=== PATIENT | male | born 1945 | race Caucasian/White ===

== ENCOUNTER 2017-08-20 05:48 | Day surgery (SDC) | payer MEDICARE, BC ==
[2017-08-20] MEDS ORDERED: CEFAZOLIN 2 GM/50 ML (PMX) 50 ML (FOR WT < 120 KG) IVPB (06:00)
[2017-08-20] MEDS ORDERED: LACTATED RINGER'S 1,000 ML IV (06:00)
[2017-08-20] MEDS ORDERED: SOD CHLORIDE 0.9% 1,000 ML IV (06:00)
[2017-08-20] MEDS ORDERED: NEOSTIGMINE 3 MG/3 ML SYRINGE (07:00)
[2017-08-20] MEDS ORDERED: GLYCOPYRROLATE 0.4 MG INJ (07:00)
[2017-08-20] MEDS ORDERED: BUPIVACAINE 0.25% (MPF) 30 ML INJ (07:07)
[2017-08-20] MEDS ORDERED: PROPOFOL 0 ML (07:45)
[2017-08-20] MEDS ORDERED: CEFAZOLIN 1 GM INJ (07:45)
[2017-08-20] MEDS ORDERED: ONDANSETRON 4 MG INJ (07:45)
[2017-08-20] MEDS ORDERED: FENTAnyl 50 MCG/ML VIAL (07:45)
[2017-08-20] MEDS ORDERED: MIDAZOLAM 1 MG/ML 2 ML INJ (07:45)
[2017-08-20] MEDS ORDERED: METOCLOPRAMIDE 10 MG INJ (07:45)
[2017-08-20] MEDS ORDERED: ROCURONIUM 50 MG INJ ×2 (07:45→09:35)
[2017-08-20] MEDS ORDERED: DEXAMETHASONE 4 MG/ML 1 ML INJ (08:21)
[2017-08-20] MEDS ORDERED: ETOMIDATE 20 MG INJ (08:23)
[2017-08-20] MEDS ORDERED: EPHEDrine SULFATE 50 MG/5 ML SYG (08:26)
[2017-08-20] MEDS: BUPIVACAINE 0.5%/EPI (SDV) 30 ML INJ INJ (08:45)
[2017-08-20] MEDS: GELATIN SIZE 100 SPONGE (08:45)
[2017-08-20] MEDS: THROMBIN 5000 UNIT VIAL (08:45)
[2017-08-20] MEDS: POLYMYXIN/BACITRACIN 1L IRRIG (08:45)
[2017-08-20] MEDS ORDERED: HYDROmorphONE 2 MG/ML SYG (09:08)
[2017-08-20] MEDS ORDERED: ONDANSETRON 4 MG INJ IV (09:30)
[2017-08-20] MEDS ORDERED: MEPERIDINE 25 MG INJ IV (09:30)
[2017-08-20] MEDS ORDERED: hydrALAzine 20 MG INJ IV (09:30)
[2017-08-20] MEDS ORDERED: HYDROmorphONE (0.2 MG/ML) 10ML SYG IV ×3 (09:30)
[2017-08-20] MEDS ORDERED: OXYCODONE/ACETAMINOPHEN (5/325) TAB PO (09:30)
[2017-08-20] MEDS ORDERED: DIPHENHYDRAMINE 50 MG INJ IV (09:30)
[2017-08-20] MEDS ORDERED: LABETALOL HCL 20MG INJ IV (09:30)
[2017-08-20] MEDS: BETAMET NA PHOS/AC(6 MG/ML) 5ML INJ (11:03)
[2017-08-20] MEDS: OXYCODONE/ACETAMINOPHEN (5/325) TAB PO ×2 (13:42→14:59)
== END 2017-08-20 15:00 | disposition home or self-care (01) ==
LOC: SDS 05:48
DX: M54.16 Radiculopathy, lumbar region (principal); M48.061 Spinal stenosis, lumbar region without neurogenic claudication; I10 Essential (primary) hypertension; E78.5 Hyperlipidemia, unspecified; E03.9 Hypothyroidism, unspecified
CPT/HCPCS: 63030; 72110; 97161

== ENCOUNTER → 2017-09-18 | Outpatient (CLI) | payer MEDICARE, BC ==
[~2017-09-18] MED LIST: IODIXANOL LOCM 100 ML BTL; NITROGLYCERIN AEROSOL (4.9 GM); SOD CHLORIDE 0.9% 100 ML
== END | disposition home or self-care (01) ==
LOC: C/S 08:00
DX: R07.9 Chest pain, unspecified (principal)
CPT/HCPCS: 75571; 75574

== ENCOUNTER 2018-02-06 08:03 | Inpatient (IN) | payer MEDICARE, BC ==
[~2018-02-06 08:03] MED LIST changes: +CEFAZOLIN 1 GM INJ; +DESFLURANE 15 MIN; -IODIXANOL LOCM 100 ML BTL; +LACTATED RINGER'S 1,000 ML IV*; -NITROGLYCERIN AEROSOL (4.9 GM); -SOD CHLORIDE 0.9% 100 ML
[2018-02-06] MEDS ORDERED: MIDAZOLAM 1 MG/ML 2 ML INJ (08:44)
[2018-02-06] MEDS ORDERED: FENTAnyl 50 MCG/ML VIAL (08:44)
[2018-02-06] MEDS ORDERED: ACETAMINOPHEN 1000MG/100ML IV 100 ML (08:48)
[2018-02-06] MEDS ORDERED: LIDOCAINE 2% (SDV) 5 ML INJ (08:48)
[2018-02-06] MEDS ORDERED: SUCCINYLCHOLINE CHLORIDE 100 MG/5 ML SYG IV (08:48)
[2018-02-06] MEDS ORDERED: PROPOFOL 20 ML (08:48)
[2018-02-06] MEDS ORDERED: ONDANSETRON 4 MG INJ (08:48)
[2018-02-06] MEDS ORDERED: ROCURONIUM 50 MG INJ (08:48)
[2018-02-06] MEDS ORDERED: KETAMINE (100 MG/ML) 5 ML VIAL (10:00)
[2018-02-06] MEDS ORDERED: MEPERIDINE 25 MG INJ IV (10:30)
[2018-02-06] MEDS: CEFAZOLIN 2 GM/50 ML (PMX) 50 ML IVPB (10:30)
[2018-02-06] MEDS ORDERED: HYDROmorphONE 1 MG/5 ML IV SYRINGE IV ×2 (10:30)
[2018-02-06] MEDS ORDERED: IPRATROPIUM (NEB) 0.5 MG/2.5 ML AMP HHN (10:30)
[2018-02-06] MEDS ORDERED: LEVALBUTEROL (NEB) 1.25 MG/0.5 ML AMP HHN (10:30)
[2018-02-06] MEDS ORDERED: ONDANSETRON 4 MG INJ IV ×2 (10:30→14:00)
[2018-02-06] MEDS ORDERED: hydrALAzine 20 MG INJ IV (10:30)
[2018-02-06] MEDS ORDERED: DIPHENHYDRAMINE 50 MG INJ IV (10:30)
[2018-02-06] MEDS ORDERED: LABETALOL HCL 20MG INJ IV (10:30)
[2018-02-06] MEDS ORDERED: FENTAnyl 50 MCG/ML VIAL IV (10:30)
[2018-02-06] MEDS ORDERED: LABETALOL HCL 20MG INJ (10:56)
[2018-02-06] MEDS: BUPIVACAINE 0.25% (MPF) 30 ML INJ (11:03)
[2018-02-06] MEDS: POLYMYXIN/BACITRACIN 1L IRRIG (11:03)
[2018-02-06] MEDS ORDERED: THROMBIN 5000 UNIT VIAL (12:36)
[2018-02-06] MEDS ORDERED: GELATIN SIZE 100 SPONGE (12:36)
[2018-02-06] MEDS ORDERED: SUGAMMADEX SODIUM 200 MG/2 ML VIAL IV (12:40)
[2018-02-06] MEDS ORDERED: ZOLPIDEM 5 MG TAB PO (14:00)
[2018-02-06] MEDS ORDERED: AL HYDROX/MG HYDROX/SIMETH 30 ML CUP PO (14:00)
[2018-02-06] MEDS ORDERED: DIAZEPAM 5 MG/ML SYG IM (14:00)
[2018-02-06] MEDS ORDERED: PROCHLORPERAZINE 10 MG TAB PO (14:00)
[2018-02-06] MEDS ORDERED: DIPHENHYDRAMINE 50 MG CAP PO (14:00)
[2018-02-06] MEDS ORDERED: CEPASTAT LOZENGE MT (14:00)
[2018-02-06] MEDS ORDERED: ACETAMINOPHEN 325 MG TAB PO (14:00)
[2018-02-06] MEDS ORDERED: TRIMETHOBENZAMIDE 100 MG/ML VIAL IM (14:00)
[2018-02-06] MEDS ORDERED: HYDROCODONE/APAP (5/325) TAB PO (14:00)
[2018-02-06] MEDS ORDERED: NACL 0.9% 3 ML SYG IV (14:00)
[2018-02-06] MEDS ORDERED: BETHANECHOL 25 MG TAB PO (14:00)
[2018-02-06] MEDS ORDERED: NALOXONE (0.4 MG/ML) INJ IV (14:00)
[2018-02-06] MEDS: HYDROmorphONE 1 MG/5 ML IV SYRINGE IV ×2 (14:10→14:29)
[2018-02-06] MEDS: FENTAnyl 50 MCG/ML VIAL IV ×2 (14:10→14:29)
[2018-02-06] MEDS: HYDROmorphONE 0.2 MG/ML PCA IV (14:22)
[2018-02-06] MEDS: DEXTROSE 5%-0.45% NACL 1,000 ML IV ×2 (16:29→23:37)
[2018-02-06] MEDS: ONDANSETRON 4 MG INJ IV ×2 (17:12→22:39)
[2018-02-06] MEDS: CEFAZOLIN 1 GM/50 ML (PMX) 50 ML IVPB ×2 (17:23→23:18)
[2018-02-06] MEDS: RANITIDINE 150 MG TAB PO (20:15)
[2018-02-06] MEDS ORDERED: ATORVASTATIN 40 MG TAB PO (21:00)
[2018-02-07] MEDS: PANTOPRAZOLE (EC) 40 MG TAB PO (01:13)
[2018-02-07] MEDS: LORAZEPAM 1 MG TAB PO (02:28)
[2018-02-07] MEDS: ONDANSETRON 4 MG INJ IV ×2 (02:28→06:26)
[2018-02-07] MEDS: DEXTROSE 5%-0.45% NACL 1,000 ML IV ×3 (04:06→19:37)
[2018-02-07] MEDS: CEFAZOLIN 1 GM/50 ML (PMX) 50 ML IVPB ×2 (06:23→12:09)
[2018-02-07] MEDS: LEVOTHYROXINE 150 MCG TAB PO (06:23)
[2018-02-07] MEDS: RANITIDINE 150 MG TAB PO ×2 (08:19→21:00)
[2018-02-07] MEDS: ASCORBIC ACID 500 MG TAB PO ×2 (08:19→20:46)
[2018-02-07] MEDS: DOCUSATE SODIUM 100 MG CAP PO ×2 (08:19→21:00)
[2018-02-07] MEDS: VITAMIN B COMPLEX/VIT C CAP PO (08:19)
[2018-02-07] MEDS: HYDROCODONE/APAP (5/325) TAB PO ×4 (08:22→20:46)
[2018-02-07] MEDS: FERROUS SULFATE (EC) 325 MG TAB PO ×3 (08:22→20:46)
[2018-02-07] MEDS: BETHANECHOL 25 MG TAB PO (08:23)
[2018-02-07] MEDS: BENAZEPRIL 40 MG TAB PO (08:23)
[2018-02-07 08:37] LABS: HEMATOCRIT 33.7 % (42.0-52.0); HEMOGLOBIN 11.1 g/dl (14.0-18.0)
[2018-02-07 08:53] LABS: ANION GAP 3 (5-13); BLOOD UREA NITROGEN 13 mg/dl (7-20); CALCIUM 8.5 mg/dl (8.4-10.2); CARBON DIOXIDE 31 mmol/L (21-31); CHLORIDE 102 mmol/L (97-110); GLUCOSE 110 mg/dl (70-220); POTASSIUM 3.5 mmol/L (3.5-5.1); SODIUM 136 mmol/L (135-144)
[2018-02-07] MEDS ORDERED: NON-FORMULARY/PATIENT OWN MED (Losartan-Hydrochlorothiazide (Losartan-HCTZ) 1 TAB) PO (09:00)
[2018-02-07 14:25] LABS: ADD UMIC YES; UR ASCORBIC ACID NEGATIVE (NEGATIVE); UR BILIRUBIN (Dip) NEGATIVE (NEGATIVE); UR BLOOD (Dip) NEGATIVE (NEGATIVE); UR CLARITY CLEAR (CLEAR); UR COLOR YELLOW (YELLOW); UR GLUCOSE (Dip) NEGATIVE (NEGATIVE); UR KETONES (Dip) NEGATIVE (NEGATIVE); UR LEUKOCYTE ESTERASE (Dip) NEGATIVE Leu/ul (NEGATIVE); UR NITRITE (Dip) NEGATIVE (NEGATIVE); UR RBC 3 /HPF (0-5); UR SPECIFIC GRAVITY (Dip) 1.021 (1.003-1.030); UR TOTAL PROTEIN (Dip) 1+ mg/dl (NEGATIVE); UR UROBILINOGEN (Dip) NEGATIVE (NEGATIVE); UR WBC 2 /HPF (0-5)
[2018-02-07] MEDS: DIAZEPAM 5 MG TAB PO (14:59)
[2018-02-08] MEDS: HYDROCODONE/APAP (5/325) TAB PO ×2 (02:09→09:17)
[2018-02-08] MEDS: DIAZEPAM 5 MG TAB PO ×2 (02:20→11:45)
[2018-02-08] MEDS: LEVOTHYROXINE 150 MCG TAB PO (05:15)
[2018-02-08] MEDS: LORAZEPAM 1 MG TAB PO (05:15)
[2018-02-08] MEDS: PANTOPRAZOLE (EC) 40 MG TAB PO (05:15)
[2018-02-08] MEDS: BENAZEPRIL 40 MG TAB PO (05:22)
[2018-02-08] MEDS: DEXTROSE 5%-0.45% NACL 1,000 ML IV (05:37)
[2018-02-08] MEDS: RANITIDINE 150 MG TAB PO (09:00)
[2018-02-08] MEDS: FERROUS SULFATE (EC) 325 MG TAB PO (09:17)
[2018-02-08] MEDS: ASCORBIC ACID 500 MG TAB PO (09:17)
[2018-02-08] MEDS: DOCUSATE SODIUM 100 MG CAP PO (09:18)
[2018-02-08] MEDS: LOSARTAN 50 MG TAB PO (09:18)
[2018-02-08] MEDS: HYDROCHLOROTHIAZIDE 12.5 MG CAP PO (09:18)
[2018-02-08] MEDS: VITAMIN B COMPLEX/VIT C CAP PO (09:18)
== END 2018-02-08 12:00 | disposition home or self-care (01) | DRG 520 ==
LOC: REC 08:03 → MS1 14:59
PROC: 01NB0ZZ Release Lumbar Nerve, Open Approach (ICD-10-PCS; principal; 2018-02-06 10:00)
PROC: 0SB20ZZ Excision of Lumbar Vertebral Disc, Open Approach (ICD-10-PCS; 2018-02-06 10:00)
DX: M51.16 Intervertebral disc disorders with radiculopathy, lumbar region (principal); M48.061 Spinal stenosis, lumbar region without neurogenic claudication; I10 Essential (primary) hypertension; E78.5 Hyperlipidemia, unspecified; E03.9 Hypothyroidism, unspecified; Z95.5 Presence of coronary angioplasty implant and graft; K21.9 Gastro-esophageal reflux disease without esophagitis; L90.5 Scar conditions and fibrosis of skin
CPT/HCPCS: 72020; 80048; 81001; 85014; 85018; 86850; 86900; 86901; 86920; 87086; 88304; 88311; 97110; 97116; 97161; 97530